=== PATIENT | male | born 1955 | race African-American/Black ===

== ENCOUNTER 2021-07-22 07:49 | Outpatient (CLI) | payer MEDICARE, SELFPAY ==
--- NOTE | 2021-08-03 22:43 | WPDSLEEPSTUD ---
Sleep Study Date of Study: 07/22/21 <Judith Quijano DO - Last Filed: 08/10/21 15:26> Ordering Provider: Judith Quijano DO <Judith Quijano DO - Last Filed: 08/10/21 15:26> Interpreting Physician: Judith Quijano DO <Judith Quijano DO - Last Filed: 08/10/21 15:26> Sleep Study Type: Split Polysomnogram <Judith Quijano DO - Last Filed: 08/10/21 15:26> Height: 1.75 m <Judith Quijano DO - Last Filed: 08/10/21 15:26> Weight: 108.862 kg <Judith Quijano DO - Last Filed: 08/10/21 15:26> Body Mass Index: 35.4 <Judith Quijano DO - Last Filed: 08/10/21 15:26> Neck Circumference (inches): 17 <Judith Quijano DO - Last Filed: 08/10/21 15:26> [place]: 3 <Judith Quijano DO - Last Filed: 08/10/21 15:26> Reason for Sleep Study Patient has known DANNY and needs new supplies. <Judith Quijano DO - Last Filed: 08/10/21 15:26> Sleep History The patient is a 66-year-old male with hypertension, hyperlipidemia, hypogonadism, benign prostatic hypertrophy and known DANNY that had a sleep study ordered by his PCP. the patient occasionally awakens from sleep short of breath. He denies awakening at night with heartburn, belching or cough. He constantly snores loud enough that others complaints. He denies having trouble sleeping when he has a cold. He denies waking up gasping for air throughout the night. He constantly has breathing problems at night observed by others. He constantly sweats excessively at night. He denies noticing heart palpitations or irregular heartbeats during the night. He occasionally falls asleep during the day but never while driving. He denies having trouble at school or work due to sleepiness. He denies sleep paralysis and cataplexy. He Hood bruno C[place]oy experiences vivid dream like scenes upon awakening or falling asleep. He denies having nightmares. He denies having thoughts racing through his mind. He denies feeling sad, depressed or anxious. He denies noticing parts of his body jerk. He denies kicking throughout the night. He occasionally has crawling aching feelings in his legs as well as leg pain during the night. He denies grinding his teeth during sleep and awakening with morning job pain. He is rarely bothered by pain during the day and rarely awakened by pain during the night. He denies waking up feeling stiff in the morning with sore and achy muscles. He goes to bed at 2:00 a.m. on both weekdays and weekends. he can fall asleep relatively quickly. He wakes up 6 times throughout the night to urinate. He can fall asleep relatively quickly. He wakes up at 6:00 a.m. on both weekdays and weekends. He typically gets 4 hours of sleep per night. He does not stay in bed after waking up in the morning. He currently lives with his . He denies consuming any caffeinated beverages within 2 hours of bedtime. He does not engage in physical exercise before bedtime. He will watch television before falling asleep. He does not take naps in the afternoon or the evening. He does smoke cigarettes. One pack will last him 1-2 weeks. He denies caffeine use throughout the day. He denies alcohol and recreational drug use. <Judith Quijano DO - Last Filed: 08/10/21 15:26> [facility] Past Medical History Medical History: Medical History BPH (benign prostatic hyperplasia) Diabetes mellitus Hypertension Hypogonadism in male DANNY (obstructive sleep apnea) <Judith Quijano DO - Last Filed: 08/10/21 15:26> Social History Social History: Social History Smoking status: Current every day smoker Tobacco type: cigarettes Alcohol intake: never Substance use: never Living arrangements: with family <Judith Quijano DO - Last Filed: 08/10/21 15:26> Sleep Procedure
[2021-08-10 15:07] VITALS: BMI 35.4
== END 2021-07-23 06:02 | disposition home or self-care (01) ==
LOC: ANHCSM 07:54
PROVIDERS: PCP Internal Medicine Infectious Disease; Visit Provider Family Medicine
DX: G47.33 Obstructive sleep apnea (adult) (pediatric) (principal)
CPT/HCPCS: 95811

== ENCOUNTER 2021-09-03 14:32 | Outpatient (CLI) | payer OTHER, SELFPAY ==
--- NOTE | 2021-09-03 15:53 | WPDPFTINT ---
PFT Procedure Performed PFT Procedure Performed Plethysmography (Lung Vol) Diffusing Cap (DLCO) Flow Vol Loop Spirometry w/o Bronchodil PFT Interpretation This is a pulmonary function test with spirometry, plethysmography and diffusing capacity. The test was performed and results interpreted in accordance with the 2019 and 2005 ATS/ERS Task Force guidelines respectively using the Global Lung Function Initiative-2012 reference equations. Patient demonstrated good effort and cooperation. Reproducibility criteria were met. The quality of the spirometry maneuver was Grade A. Findings: Spirometry: The contour the inspiratory and expiratory flow tracing are normal. The FVC is 2.88 L, 81% predicted. The FEV1 is 2.31 L, 84% predicted. The FEV1: FVC ratio was 80%. Plethysmography: The total lung capacity is 5.34 L, 89% predicted. The functional residual capacity is 3.99 L, 120% predicted. The residual volume is 2.46 L, 114% predicted. Diffusing capacity: The diffusing capacity unadjusted for hemoglobin is 19.1, 72% predicted. The diffusing capacity adjusted for alveolar volume is 5.71, 140% predicted. Impression: The spirometry is normal without evidence of an obstructive abnormality. The lung volumes are normal. The diffusing capacity unadjusted for hemoglobin is normal and is increased when adjusted for alveolar volume. There are no prior studies for comparison
== END 2021-09-03 14:33 | disposition home or self-care (01) ==
PROVIDERS: PCP Internal Medicine Infectious Disease; Visit Provider Internal Medicine Cardiovascular Disease
DX: R06.02 Shortness of breath (principal)
CPT/HCPCS: 94375; 94726; 94729

== ENCOUNTER 2021-09-24 00:44 | Day surgery (SDC) | payer OTHER, SELFPAY ==
[2021-09-23 16:26] VITALS: BMI 33.9
[2021-09-24] VITALS (9 sets, daily range): BP systolic 140–164; BP diastolic 77–103; PULSE 61–84; RESP 16–24; TEMP 36.6; O2SAT 98–100; BMI 33.1
[2021-09-24 07:44] LABS: Basophils Absolute Auto 0.1 K/mm3 (0.0-0.1); Basophils Percent Auto 0.7 % (0.2-1.2); Eosinophils Absolute Auto 0.1 K/mm3 (0-0.3); Eosinophils Percent Auto 1.7 % (0-4.4); Hematocrit 52.6 % (42.0-52.0); Hemoglobin 17.7 g/dL (14.0-18.0); Immature Granulocyte Absolute 0.04 K/mm3 (0.00-0.031); Immature Granulocyte Percent A 0.5 % (0-0.5); Immature Platelet Fraction Pct 12.8 % (0.9-11.2); Lymphocytes Absolute Auto 2.26 K/mm3 (0.9-3.2); Lymphocytes Percent Auto 30.1 % (18.3-44.2); Mean Corpuscular HGB Conc 33.7 g/dl (32-36); Mean Corpuscular Hemoglobin 32.2 pg (26-34); Mean Corpuscular Volume 95.8 fl (80-100); Monocytes Absolute Auto 1.1 K/mm3 (0.1-0.6); Neutrophils Absolute Auto 3.9 K/mm3 (1.3-6.7); Platelet Count Result 141 k/mm3 (150-375); Red Blood Count 5.49 M/mm3 (4.6-6.20); Red Cell Distribution Width 14.3 % (11.5-14.5); White Blood Count 7.5 K/mm3 (4.5-10.0)
[2021-09-24] MEDS: SODIUM CHLORIDE 0.9% IV 500 ML 100 ML IV CONT (07:46)
[2021-09-24 07:51] LABS: Anion Gap 4 mmol/L (8-16); Blood Urea Nitrogen 15 mg/dL (9-20); Calcium 8.6 mg/dL (8.4-10.2); Carbon Dioxide 30 mmol/L (22-30); Chloride 105 mmol/L (98-107); Estimated CRCL calculation 79 ml/min; Estimated Glomerular Filt Rate > 60; Glucose 102 mg/dL (65-110); Sodium 139 mmol/L (137-145)
[2021-09-24 07:54] LABS: INR 1.1; Prothrombin Time 13.6 Seconds (11.1-14.7)
[2021-09-24 08:01] LABS: Atypical Lymphocytes Present; Platelet Estimate Adequate (Adequate)
--- NOTE | 2021-09-24 09:02 | WPDMODSED ---
Moderate Sedation Note-Pt Data Patient Data Diagnosis: Exertional dyspnea Left ventricular dysfunction Abnormal nuclear stress test Untreated sleep apnea Polycythemia Present Complaint: This is a 66-year-old patient without previous history of known coronary disease evaluated as an outpatient because of dyspnea. He underwent a nuclear stress test which demonstrated evidence of a fixed inferior defect and left ventricular systolic dysfunction. An echocardiogram was interpreted as demonstrating normal left ventricular systolic function. ECG appears to show sinus rhythm with findings compatible with an anterior infarction. For further evaluation and clarification of all of this catheterization has been recommended. Procedure to be performed/Plan: Left heart catheterization Allergies Allergy/AdvReac Type Severity Reaction Status Date / Time No Known Allergies Allergy Verified 09/24/21 07:31 Home Medications Medication Instructions Recorded Confirmed Type amlodipine 2.5 mg PO DAILY 09/23/21 09/24/21 History finasteride 5 mg PO DAILY 09/23/21 09/24/21 History pravastatin 40 mg PO DAILY 09/23/21 09/23/21 History tamsulosin 0.4 mg PO DAILY 09/23/21 09/24/21 History testosterone enanthate [Xyosted] 100 mg SUBCUT WEEKLY 09/23/21 09/23/21 History Current Medications: Active Medications Sodium Chloride (Normal Saline Iv) 500 mls @ 100 mls/hr IV CONT .Q5H RACHEL Last Admin: 09/24/21 07:46 Dose: 100 mls/hr Documented by: Sedation/Anesthesia: No previous sedation/anesthesia problems (including family history). [facility] Past Medical History Medical History BPH (benign prostatic hyperplasia) Diabetes mellitus Hypertension Hypogonadism in male DANNY (obstructive sleep apnea) Social History Social History Years smoked: 23 Smoking status: Light tobacco smoker Tobacco type: cigars Smokeless tobacco user: chewing tobacco Second hand tobacco smoke exposure: No Alcohol intake: never Alcohol use details: drinks every 6 weeks or so Substance use: former Substance use type: former substance user and marijuana Other substance usage details: smokes cigars Living arrangements: with family Spiritual care concerns: No Mod Sed Physical Exam Physical Exam Pre Procedural Exam: Normal: Neck, Throat, Airway, Lungs, Heart Size, Heart Rate, Heart Rhythm, Neuro Exam and Extremities and Variation: Appearance (Overweight black male no distress) Hours since solid foods: 12 Hours since liquid intake: 12 Mallampati Classification: class II Internal Medicine - PN: Obj Da Vital Signs Vital Signs: Vital Signs - 24 hr 09/24/21 07:20 Temperature 36.6 C Pulse Rate 84 Respiratory Rate 22 H Blood Pressure 164/103 H Pulse Oximetry 99 Meds/Results Medications: Active Medications Generic Name Dose Route Start Last Admin Trade Name Freq PRN Reason Stop Dose Admin Sodium Chloride 500 mls @ 100 mls/hr 09/24/21 07:30 09/24/21 07:46 Normal Saline Iv IV CONT 100 mls/hr .Q5H RACHEL Administration Labs CBC & Chem 7: 09/24/21 07:23 09/24/21 07:23 Labs: Laboratory Results - last 24 hr 09/24/21 09/24/21 09/24/21 07:23 07:23 07:23 WBC 7.5 RBC 5.49 Hgb 17.7 Hct 52.6 H MCV 95.8 MCH 32.2 MCHC 33.7 RDW 14.3 Plt Count 141 L MPV 12.0 H Immature Gran % (Auto) 0.5 Neut % (Auto) 52.0 Lymph % (Auto) 30.1 Emery % (Auto) 15.0 H Eos % (Auto) 1.7 Baso % (Auto) 0.7 Lymph # (Auto) 2.26 Emery # (Auto) 1.1 H Eos # (Auto) 0.1 Baso # (Auto) 0.1 Abs Immat Gran (auto) 0.04 H Absolute Neuts (auto) 3.9 Absolute Nucleated RBC 0.0 Nucleated RBC % 0.0 Atypical Lymphocytes Present Platelet Estimate Adequate % Immature Plt Fraction 12.8 H PT 13.6 INR 1.1 Sodium 139 Potassium 4.0 Chlori
--- NOTE | 2021-09-24 09:05 | SUR.PREOP ---
Dr. Onofre at bedside talking with patient and regarding left heart cath procedure. Dr. Onofre informed H & P is older than 30 days and needs updated.
--- NOTE | 2021-09-24 09:10 | PM.IMHP ---
H&P: HPI History of Present Illness Date/Time: 09/24/21 09:10 Chief Complaint: Shortness of breath Narrative: This is a 66-year-old patient that was recently referred to our offices seen by my partner for evaluation of dyspnea. He says that he notices shortness of breath with certain activities around the house such as lifting and bending. He states he is able to walk distances up to 4 or 5 miles without having symptoms of shortness of breath. He does not have any chest pain symptoms. The patient has an abnormal electrocardiogram which shows anterior Q-waves. He had a workup including an echocardiogram that demonstrated normal left ventricular systolic function. A nuclear stress test however so showed evidence of moderately depressed LV systolic function and a previous inferior infarction. For clarification of all of this left heart catheterization has been scheduled for today. Review of Systems Constitutional: Constitutional: Reports no additional constitutional complaints Eyes: Eyes: Reports no additional eye complaints ENT: Reports system reviewed and no additional complaints, except as documented Cardiovascular: Cardiovascular: Reports as per HPI Respiratory: Respiratory: Reports as per HPI Gastrointestinal: Gastrointestinal: Reports no additional gastrointestinal complaints Musculoskeletal: Musculoskeletal: Reports no additional musculoskeletal complaints Integumentary/Breasts: Skin/Breast: Reports system reviewed and no additional complaints, except as docu [facility] Past Medical History Medical History BPH (benign prostatic hyperplasia) Diabetes mellitus Hypertension Hypogonadism in male DANNY (obstructive sleep apnea) Social History Social History Years smoked: 23 Smoking status: Light tobacco smoker Tobacco type: cigars Smokeless tobacco user: chewing tobacco Second hand tobacco smoke exposure: No Alcohol intake: never Alcohol use details: drinks every 6 weeks or so Substance use: former Substance use type: former substance user and marijuana Other substance usage details: smokes cigars Living arrangements: with family Spiritual care concerns: No Meds Home Medications and Allergies Home Medications Medication Instructions Recorded Confirmed Type amlodipine 2.5 mg PO DAILY 09/23/21 09/24/21 History finasteride 5 mg PO DAILY 09/23/21 09/24/21 History pravastatin 40 mg PO DAILY 09/23/21 09/23/21 History tamsulosin 0.4 mg PO DAILY 09/23/21 09/24/21 History testosterone enanthate [Xyosted] 100 mg SUBCUT WEEKLY 09/23/21 09/23/21 History Allergies Allergy/AdvReac Type Severity Reaction Status Date / Time No Known Allergies Allergy Verified 09/24/21 07:31 Vital Signs Vital Signs - 24 hr 09/24/21 07:20 Temperature 36.6 C Pulse Rate 84 Respiratory Rate 22 H Blood Pressure 164/103 H Pulse Oximetry 99 Exam Const: General: comfortable and no acute distress Other: Pleasant somewhat overweight black gentleman appearing his stated age no distress of any sort HENMT: Mouth: Yes moist mucous membranes Eyes: Sclera: sclerae normal Pupils: Equal, round and reactive pupils present Neck: Neck: supple and no JVD Resp: Effort & Inspection: normal respiratory effort Auscultation: clear to auscultation bilaterally Cardio: Rate: regular rate Rhythm: regular rhythm Other: PMI not displaced of normal activity no murmur no gallop GI: GI Palp: Yes Soft to palpation Auscultation: normal bowel sounds Skin: General skin exam: normal color Neuro: Cognition (Neuro): normal cognition Extrem: General: normal to inspection Other: Good distal pulses, no edema H&P: Results Labs Labs: Short CBC 09/24/21 Range/Units 07:23 WBC 7.5 (4.5-10.0) K/mm3 Hgb 17.7 (14.0-18.0) g/dL Hct 52.6 H (42.0-52.0) % Plt Count 141 L (150-375) k/mm3 BMP
--- NOTE | 2021-09-24 09:47 | P.PCNCC_ITS ---
Cardiac Cath Procedure Note Date of procedure:: 09/24/21 Performing physician:: Wes Onofre MD Indication:: Exertional dyspnea abnormal nuclear stress test Brief clinical history:: this is a 66-year-old patient with a history of hypertension, up until recently untreated sleep apnea and recently referred for shortness of breath. Nuclear stress testing demonstrates evidence of LV systolic dysfunction and suggests evidence of previous inferior infarction. Procedure Procedure performed:: Left ventriculogram coronary angiogram Angio-Seal to right femoral artery Sedation/Medication given:: fentanyl 50 mg Versed 2 mg case start time 9:27 a.m. case end time 9:42 a.m. Access site:: right femoral artery Estimated blood loss:: 25 cc Procedure note:: patient was brought to the cardiac catheterization lab in the postabsorptive state where the right femoral triangle was prepared and draped in the normal fashion. Anesthesia was provided with 1% lidocaine infiltrated locally. Using the modified technique femoral artery was punctured a 5 Niuean vascular sheath was placed. I then used a 5 Niuean angled pigtail catheter to document left-sided hemodynamics and to inject LV g in the 30 degree CYR projection. After this the pigtail catheter was withdrawn and a 5 Niuean FL4 catheter was used to engage and inject the left coronary artery in multiple projections. After this the right coronary artery was engaged and injected 5 Niuean JR4 catheter. The cineangiograms were reviewed and the case was then terminated. a femoral angiogram was performed through the sheath and after this a 6 Niuean Angio-Seal device was used to provide hemostasis with a good result. 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 Findings:: Hemodynamics: Central pressure is 64 over 86 left ventricle 164/5 end-diastolic pressure 36. No gradient on pullback across the aortic valve. Left ventricle: The LV is moderately enlarged there is global hypocontractility which is severe in the inferior segment. Global ejection f raction is 35-40%. The left main coronary artery is large in caliber widely patent the left anterior descending is large in caliber patent down to around the apex the LAD and its diagonal branches are free of significant disease there is minimal luminal plaquing irregularity in the proximal segment of the LAD. The circumflex is a large caliber vessel and is codominant to the posterior circulation the circumflex system its marginal and posterior branches are angiographically unremarkable. The right coronary artery is moderate in caliber and codominant terminating in an RPDA. Right coronary artery smooth and angiographically unremarkable. Conclusion:: 1. codominant coronary circulation with no evidence of significant coronary disease. Minimal plaquing was noted in the proximal LAD 2. left ventricular systolic dysfunction ejection fraction estimated to be 35- 40%. 3. Elevated LVEDP 4. Angio-Seal to right femoral artery Wes Onofre MD [facility]
== END 2021-09-24 13:25 | disposition home or self-care (01) ==
PROVIDERS: PCP Internal Medicine Infectious Disease; Visit Provider Specialist
PROC: 4A023N7 Measurement of Cardiac Sampling and Pressure, Left Heart, Percutaneous Approach (ICD-10-PCS; CPT 93452; principal; 2021-09-24 09:00)
DX: R94.39 Abnormal result of other cardiovascular function study (principal); R06.02 Shortness of breath; I10 Essential (primary) hypertension; G47.33 Obstructive sleep apnea (adult) (pediatric); E11.9 Type 2 diabetes mellitus without complications; N40.0 Benign prostatic hyperplasia without lower urinary tract symptoms; E29.1 Testicular hypofunction; F17.220 Nicotine dependence, chewing tobacco, uncomplicated; F17.290 Nicotine dependence, other tobacco product, uncomplicated
CPT/HCPCS: 36415; 80048; 85025; 85055; 85610; 93458; C1760; C1887; C1894; G0269; J1644; J2250; J3010; J7040

== ENCOUNTER 2025-02-12 01:55 | Day surgery (SDC) | payer OTHER, SELFPAY ==
[2025-02-11 09:18] VITALS: BMI 38.6
[2025-02-12] VITALS (8 sets, daily range): BP systolic 112–133; BP diastolic 58–72; PULSE 69–86; RESP 15–24; TEMP 36.2; O2SAT 98–100
--- OUTSIDE RECORDS SUMMARY | 2025-02-12 01:58 | XMS_ITS | Encounter Summary ---
Author Organization [facility] Healthcare Address [address] [place] [address] Care Team Providers Care Joint Special [employer] Name Role Phone Laila Ojeda NP Primary Care Provider [phone] Black Dougherty MD Unavailable [phone] Justin Sommers MD Unavailable [phone] Yazmin Smith NP Unavailable [phone] Encounter Details Date Type Department Care Team (Late st Contact Info) Description 07/17/2024 Orders Only [facility] Health Information Management [address] [place] [id number] Justin Pepe MD [address] [facility] [address] [facility], [address] [place] [address] Social History Tobacco Use Types Packs/Day Years Used Date Smoking Tobacco: Some Days Cigars Smokeless Tobacco: Never Alcohol Use Standard Drinks/Week Comments Yes 0 (1 standard drink = 0.6 oz pur e alcohol) AUDIT-C Answer Date Recorded Q1: How often do you have a drink containing alc ohol? Monthly or less 02/27/2022 Q2: How many drinks containi ng alcohol do you have on a typical day when you are drinking? 1 or 2 02/27/2022 Q3: How often do you have si x or more drinks on one occasion? Less than monthly 02/27/2022 PHQ-2 Answer Date Recorded PHQ-2 Total Score (If total score is 3 or more points, staff should administer the PHQ-9) 0 02/26/2024 Personal Safety Answer Date Recorded Have you ever been in or are you currently in a harmful physical or emotional relationship or is someone making you feel afraid or unsafe? 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 Gender Identity Not on file Sexual Orientation Not on file documented as of this encounter Plan of Treatment Not on file documented as of this encounter Procedures Procedure Name Priority Date/Time Associated Diagnosis Comments SCAN - RADIOLOGY/IMAGING 07/17/2024 documented in this encounter Results * SCAN - RADIOLOGY/IMAGING (07/17/2024) Anatomical Region Laterality Modality Other us Justin Pepe MD Final Res ult documented in this encounter Visit Diagnoses Not on filedocumented in this encounter Care Teams Joint Special Operations Relationship Specialty Start Date End Date Laila Ojeda NP [address] [facility] [place] [place] [address] PCP - General Internal Medicine 06/27/24 Black Dougherty MD [address] [place] [address] 06/27/24 08/01/24 Justin Sommers MD [address] [place] [address] Referring Physician General Surgery 01/22/18 Yazmin Smith NP [address] [place] [address] Nurse Practitioner Urology 01/01/20 documented as of this encounter
--- OUTSIDE RECORDS SUMMARY | 2025-02-12 01:58 | XMS_ITS | Encounter Summary ---
Author Organization [facility] Address [address] [place] [address] Phone Care Team Providers Care Associate Professor Of Geography Name Role Phone Black Dougherty MD Primary Care Provider [phone] Laila Ojeda NP Primary Care Provider [phone] Black Dougherty MD Unavailable [phone] Justin Sommers MD Unavailable [phone] Yazmin Smith NP Unavailable [phone] Diane Bucio MA Unavailable Encounter Details Date Type Department Care Team (Late st Contact Info) Description 07/22/2021 Orders Only [facility] [address] [place] [address] Scanning, Provider Social History Tobacco Use Types Packs/Day Years Used Date Smoking Tobacco: Every Day Cigarettes Cigars Smokeless Tobacco: Never Alcohol Use Standard Drinks/Week Comments Yes 0 (1 standard drink = 0.6 oz pur e alcohol) Sex and Gender Information Value Date Recorded Sex Assigned at Not on file 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 Gender Identity Not on file Sexual Orientation Not on file documented as of this encounter Plan of Treatment Not on file documented as of this encounter Procedures Procedure Name Priority Date/Time Associated Diagnosis Comments PULMONARY - RESULT SCAN 09/03/2021 SLEEP LAB/STUDY - RESULT 07/22/2021 documented in this encounter Results * PULMONARY - RESULT SCAN (09/03/2021) Anatomical Region Laterality Modality Other us Provider Scanning Final Result * SLEEP LAB/STUDY - RESULT (07/22/2021) us Provider Scanning Final Result documented in this encounter Visit Diagnoses Not on filedocumented in this encounter Care Teams Associate Professor Of Geography Relationship Specialty Start Date End Date Black Dougherty MD [address] [place] [address] PCP - General 09/08/11 06/26/24 Laila Ojeda NP [address] [facility] [place] [address] PCP - General Internal Medicine 06/27/24 Black Dougherty MD [address] [place] [address] 06/27/24 08/01/24 Justin Sommers MD [address] [facility] [place] [address] Referring Physician General Surgery 01/22/18 Yazmin Smith, ROLANDO [address] [place] [id number] Nurse Practitioner Urology 01/01/20 Diane Bucio MA [address] [place] [address] [address] [place] [address] ACO Care 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
--- OUTSIDE RECORDS SUMMARY | 2025-02-12 01:58 | XMS_ITS | Clinical Summary ---
Author Organization [facility] Address [address] [place] [address] Care Team Providers Care Legal Specialist Name Role Phone Laila Ojeda NP Primary Care Provider [phone] Ema Sommers MD Unavailable Yazmin Smith NP Unavailable [phone] Allergies No known active allergies Medications aspirin 81 mg enteric coated tabletIndications:C erebral Thromboembolism Prevention Take 1 tablet (81 mg total) by mouth daily for 21 days 21 tablet 03/02/20 22 Active cholecalciferol (VITAMIN D-3) 50,000 unit capsule Take 1 capsule (50,000 Units total) by mouth once a week Active tamsulosin (FLOMAX) 0.4 mg extended release capsule Take 1 capsule (0.4 mg total) by mouth daily 07/03/19 24 Active amLODIPine (NORVASC) 10 mg tablet TAKE 1 TABLET BY MOUTH EVERY DAY 90 tablet 2 12/11/19 24 Active atorvastatin (LIPITOR) 40 mg tablet TAKE 1 TABLET BY MOUTH EVERY DAY 90 tablet 1 03/11/20 24 Active carvediloL (COREG) 12.5 mg tabletIndications:N onischemic cardiomyopathy (HCC),Essential hypertension,Elevat ed left ventricular end-diastolic pressure (LVEDP) Take 1 tablet (12.5 mg total) by mouth 2 (two) times a day with meals 180 tablet 2 06/27/20 24 Active Additional Information Patient taking differently: 25 mgoral 2 times daily with meals (bkfst, dinner), Reported on 12/23/2024 losartan (COZAAR) 100 mg tabletIndications:E ssential hypertension Take 1 tablet (100 mg total) by mouth daily 90 tablet 2 06/27/20 24 Active solifenacin (VESIcare) 5 mg tablet Take 1 tablet (5 mg total) by mouth daily 12/07/19 25 Active sildenafiL, pulm.hypertension, (REVATIO) 20 mg tablet TAKE 1-5 TABS BY MOUTH DAILY DIRECTED. 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): CXR WAS NEG CT OF THE HEAD WAS NEG LABS WERE NL NO ORTHOSTSICS TODAY EKG DONE TODSAY SHOWING IRREGUALR / HR OF AROUND 80 / NO ACUTE ST/T WAVE CHANGES MAKE F/U DR [facility] Routine physical examination 02/26/2024 Assessment & Plan (02/26/2024 8:45 AM CDT): Immunizations were reviewed Left acute arterial ischemic stroke, MEDICAL GENETICS DIRECTOR (posterior cerebral artery) 03/08/2022 Multinodular goiter 03/08/2022 Uncontrolled hypertension 03/08/2022 Diastolic dysfunction without heart failure 12/2021 Arterial ischemic stroke, MC A (middle cerebral artery), left, acute 02/27/2022 Nonischemic cardiomyopathy 12/10/2021 Elevated left ventricular end-diastolic pressure (LVEDP) 12/10/2021 Morbid (severe) obesity due to excess calories 0 10/04/2021 Shortness of breath 08/17/2021 Essential hypertension 08/17/2021 ASKEW (dyspnea on exertion) 08/17/2021 Rectal bleeding 06/19/2019 Overview (06/19/2019): Added automatically from request for surgery [id number] Blood in stool 06/19/2019 Overview (06/19/2019): Added automatically from request for surgery [id number] Vertigo 08/10/2017 Surgical follow-up care 06/12/2017 Obesity with body mass index 30 or greater 06/08 Reserve-vesical fistula 05/19/2017 Abnormal EKG 05/19/2017 Routine physical examination 02/03/2017 Assessment & Plan (02/26/2024 12:50 PM CDT): IMMUNIZATIONS WERE REVIEWED DILATED EYE EXAM IS NL ORAL EXAM/ DENTAL EXAM IS NL COLONSCOPY IS UPTODATE BPH WITH SYMPTOMS OF OAB : ON FLOMAX AND OXYBUTYNIN NICM : CHRONIC AND STABLE F/U DR PEPE DANNY ON CPAP MACHINE USAING IT NIGHTLY LOW TESOTEROTNE : F/U UROLOGY CHRONIC AND STABLE ESSENTIAL HYPERTESNIN GOAL BP IS 130/80 OR UNDER MIXED HYPERLIPIMDEIA GOAL LDL IS UNDER70 H/o stroke with no residual sequelae : on plavix 75 mg po qday Skin assesssment todsay with no suspicious lesions Tobacco abuse cessation reviewed Falls risks and prevention [facility] today Knee pain 11/18/2015 Overview (10/06/2016): Knee pain Mixed hyperlipidemia 11/16/2013 Overview (10/06/2016): Hyperlipidemia Benign prostatic hyperplasia without lower urinary tract symptoms 11/16/2013 Overview (10/06/2016): BPH (benign prostatic hypertrophy) DANNY (obstructive sleep apnea) 11/16/2013 Overview (10/06/2016): Obstructive sleep apnea Tobacco dependence syndrome 11/16/2013 Overview (10/07/2016): Tobacco abuse Resolved Problems Problem Noted Date Diagnosed Date Resolved Date Type 2 diabetes mellitus wit hout complication, without long-term current use of insulin 05/19/2017 02/16/2023 Encounters Date Type Department Care Team Description 02/03/2025 10:00 AM CDT Procedure visit [facility] [address] [place] [address] [address] [place] [phone] Hypertension, essential 02/03/2025 Telephone [facility] [address] [place] [address] [address] [place] [phone] Caterina Sanderson NP 02/03/2025 Results Follow-Up [facility] [address] [place] [address] [place] [phone] Caterina Sanderson NP ECG 12 lead 12/24/2024 Orders Only [facility] [place] Health Information Management [address] [place], [place] [id number] Scanning, Provider 12/23/2024 1:30 PM CDT Office Visit [facility] [address] [place] [address] [place] [phone] Caterina Sanderson NP Atrial flutter, unspecified type (HCC) (Primary Dx); History of stroke; Encounter for anticoagulation discussion and counseling 12/11/2024 Telephone [facility] [address] [place] [address] [place] [phone] Ema Pepe MD from Last 3 Months Immunizations Immunization Administration Dates Next Due DTP 10/20/2008,10/20/2002 Influenza, Quad, Adjuvantate d, Intramuscular 04/18/2021,03/04/2020 Influenza, Quadrivalent, Hig h Dose, Preservative Free, Intrr 03/07/2022 Influenza, Quadrivalent, Spl it, Intramuscular 03/29/2016 Influenza, Split 03/27/2013 Influenza, Trivalent, High D ose, Split, Preservative Free, Intramuscular 05/21/2019 Influenza, Trivalent, IM (MDV) 07/01/2015,2013 Influenza, Unspecified 04/02/2023(Deferr ed: Patient decision),05/30/2017 Moderna SARS-CoV-2 Monovalen t Vaccination (12+ YRS) 04/18/2021 Pfizer Sars-Cov-2 Bivalent V accination (12+ YRS) 05/04/2022 ZOSTER Recombinant 10/18/2022,08/11/2022 Surgical History Surgery Date Site/Laterality Comments COLONOSCOPY 06/18/2010 Medical History Medical History Date Comments Diabetes mellitus (HCC) Low testosterone Hypertension Shortness of breath Family History Medical History Relation Name Comments Diabetes Brother Allergic reaction Father Diabetes Mother Stroke Mother Other Other Family history of diabetes and hypertension.; Diabetes type II Sister 1 Diabetes Sister 2 Diabetes Sister 3 Relation Name Status Comments Brother Alive Father Mother Other Sister 1 Sister 2 Sister 3 Social History Tobacco Use Types Packs/Day Years Used Date Smoking Tobacco: Some Days Cigars Smokeless Tobacco: Never Tobacco Cessation:Ready to Q uit: Not Asked; Counseling Given: Not Answered Alcohol Use Standard Drinks/Week Comments Yes 0 [...] on file 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 Gender Identity Not on file Sexual Orientation Not on file Obstetrics History Last Filed Vital Signs Vital Sign Reading Time Taken Comments Blood Pressure 110/62 02/03/2025 9:50 AM CDT Pulse 70 02/03/2025 9:50 AM CDT Temperature 36.6 C (97.8 F) 06/19/2024 1:39 PM NATURAL RESOURCES ENGINEER Respiratory Rate 20 06/19/2024 1:39 PM NATURAL RESOURCES ENGINEER Oxygen Saturation 99% 02/03/2025 9:50 AM CDT Inhaled Oxygen Concentration - - Weight 111.6 kg (246 lb) 12/23/2024 1:31 PM CDT Height 175.3 cm (5' 9) 12/23/2024 1:31 PM CDT Body Mass Index 36.33 12/23/2024 1:31 PM CDT Plan of Treatment Health Maintenance Due Date Last Done Comments Hepatitis B Screening 1972 Pneumococcal vaccine 65+ (1 of 2 - PCV) 1973 DTaP/Tdap/Td Vaccine (3 - Tdap) 10/20/2018 9, 10/20/2002 Abdominal Aortic Aneurysm (A AA) Screen 2019 03/09/2017 Covid-19 Vaccine (5 - 2023-2 5 season) 2024 05/04/2022, 04/18/2021, 09/17/2020, Additional history exists Depression Screening 02/25/2025 02/26/2024, 08/25/2023, 08/25/2023, Additional history exists Fall Risk Assessment 02/25/2025 02/26/2024, 02/16/2023, 03/01/2022, Additional history exists Well Visit 65+ 02/25/2025 02/26/2024, 01/31, 02/07/2022, Additional history exists Influenza Vaccine (#1) 2025 , 03/07/2022, 04/18/2021, Additional history exists Prostate Cancer Screening-PSA 03/29/2025, 07/13/2021, 01/06/2020, Additional history exists Colon Cancer Screening-Colonoscopy 07/18/2029 07/18/2019, 03/30/2017, 06/18/2010 Hepatitis C Screening Completed 02/03/2017 Colon Cancer Screening-CT Colonography Discontinued 07/18/2019, 03/30/2017, 06/18/2010 Colon Cancer Screening-DNA Stool Discontinued 07/18/2019, 03/30/2017, 06/18/2010 Colon Cancer Screening-FIT Discontinued 07/18, 03/30/2017, 06/18/2010 Colon Cancer Screening-Sigmoidoscopy Discontinued 07/18/2019, 03/30/2017, 06/18/2010 Zoster Vaccine Completed 10/18/2022, 08/11/2022 Procedures Procedure Name Priority Date/Time Associated Diagnosis Comments ECG 12-LEAD Routine 02/03/2025 9:52 AM CDT Hypertension, essential CARDIOLOGY DOCUMENT SCAN 12/24/2024 9:28 PM CDT PSA SCREEN Routine 03/29/2023 9:55 AM CDT Prostate cancer screening COLONOSCOPY 07/18/2019 9:59 AM [address] CT ABDOMEN PELVIS W CONTRAST Routine 03/09/2017 6:54 PM CDT HEPATITIS C ANTIBODY Routine 02/03/2017 9:17 AM CDT Routine physical examination from Last 3 Months or Most Recently Relevant to Health Maintenance Results * ECG 12 lead (02/03/2025 9:52 AM CDT) us Caterina Sanderson NP ECG ORDERABLES Final Res ult * Cardiology Document Scan (12/24/2024 9:28 PM CDT) Anatomical Region Laterality Modality Other us Provider Scanning [facility] CARDIAC SERVICES PROCEDURES Final Result * PSA screen (03/29/2023 9:55 AM CDT) PSA 1.14 < OR = 4.00 ng/mL [facility] Comment: The total PSA value from this assay system is standardized against the WHO standard. The test result will be approximately 20% lower when compared to the equimolar-standardized total PSA (Bessy Keyana). Comparison of serial PSA results should be interpreted with this fact in mind. This test was performed using the Siemens chemiluminescent method. Values obtained from different assay methods cannot be used interchangeably. PSA levels, regardless of value, should not be interpreted as absolute evidence of the presence or absence of disease. Blood 03/29/2023 9:55 AM CDT 03/30/2023 3:40 AM CDT us Black Dougherty MD LAB BLOOD ORDERABLES Final Result [facility] [id number] [id number] * COLONOSCOPY (07/18/2019 9:59 AM NATURAL RESOURCES ENGINEER) Anatomical Region Laterality Modality Other Narrative Procedure Note Percy Rowe MD - 07/18/2019 9:59 AM CST [facility] Patient Name: Kelby Guaman Procedure Date: 07/18/2019 9:59 AM Date of : 1955 Admit Type: Outpatient Age: 64 Gender: Male Attending MD: Percy Rowe M.D. Room: [facility] ENDOSCOPY ROOM 2 Note Status: Finalized Patient Profile: Refer to note in patient chart for documentation of history and physical. Procedure: Colonoscopy Indications: Screening for colorectal malignant neoplasm, Last colonoscopy: May 2010. History of sigmoid resection for colovesical fistula. Referring MD: Black Dougherty M.D. Providers: Percy Rowe M.D. Impression: - Hemorrhoids found on perianal exam. - Patent end-to-end colo-colonic anastomosis, characterized by healthy appearing mucosa. - Diverticulosis in the sigmoid colon and at the hepatic flexure. - The examination was otherwise normal. - No specimens collected. Recommendation: - Discharge patient to home. - Resume previous diet. - Continue present medications. - Repeat colonoscopy in 10 years for screeningpurposes. - Return to primary care physician as previously scheduled. Medicines: Propofol per Anesthesia Complications: No immediate complications. Estimated Blood Loss: Estimated blood loss: none. Procedure: Pre-Anesthesia Assessment: - This assessment was completed [Time of Assessment] prior to the administration of sedation. The benefits, risks and alternatives of theprocedure and sedation were discussed and informed consent was obtained. All questions were answered. Please referto the signed informed consent document in the medical record. The bowel preparation used was Miralax. The bowel preparation used was bisacodyl tablets. Bowel prep was administered using a single dose. The scope was passed under direct vision. The Colonoscope [id number] was introduced through the anusand advanced to the the cecum, identified by appendiceal orifice and ileocecal valve. The colonoscopy was performed without difficulty. The patient toleratedthe procedure well. The quality of the bowel preparation was excellent. Findings: Hemorrhoids were found on perianal exam. There was evidence of a prior end-to-end colo-colonic anastomosis inthe sigmoid colon. This was patent and was characterized by healthy appearing mucosa. Multiple small and large-mouthed diverticula were found in thesigmoid colon and hepatic flexure. The exam was otherwise without abnormality. Electronically signed by Percy Rowe M.D. Percy Rowe M.D. 07/18/2019 10:43:42 AM Number of Addenda: 0 Note Initiated On: 07/18/2019 9:59 AM Procedure Code(s): --- Professional --- G0121, Colorectal cancer screening; colonoscopy on individual not meeting criteria for high risk Diagnosis Code(s): --- Professional --- K57.30, Diverticulosis of large intestine without perforation orabscess without bleeding Z98.0, Intestinal bypass and anastomosis status K64.9, Unspecified hemorrhoids Z12.11, Encounter for screening for malignant neoplasm of colon CPT copyright 2017 [employer]. All rights reserved. The codes documented in this report are preliminary and upon boring machine feeder reviewmay be revised to meet current compliance requirements. Recognized by the [employer] for promoting quality in endoscopy Percy Rowe MD ENDOSCOPY PROCEDURES Final Re sult * CT Abdomen Pelvis W Contrast (03/09/2017 6:54 PM CDT) Anatomical Region Laterality Modality Body N/A Computed Tomogra phy 03/09/2017 6:54 PM CDT Narrative 03/09/2017 6:54 PM CDT PRABHU CARBONE M.D. FINAL REPORT ACC# Date Time Exam [id number] Mar 09, 2017 13:54:[id number] Abd and Pelvis with cont EXAMINATION: Computed tomography examination the abdomen pelvis with contrast HISTORY: Colovesical fistula. TECHNIQUE: Following the administration of 120 cc Optiray-350 images were obtained through the abdomen and pelvis using standard protocol. FINDINGS: There are no comparison computed tomography examinations. The liver, spleen, gallbladder, pancreas appear normal. There is an indeterminant 1.8 x 1.3 cm left adrenal nodule. The right adrenal gland appears normal. Simple cysts noted with in both kidneys. The bowel gas pattern is normal. Colonic diverticulosis present, most marked within the sigmoid colon. The sigmoid colon which contains numerous diverticula touches the dome of the bladder without intervening fat plane. There is a tiny air bubble is present with in the urinary bladder. The prostate appears normal. The lung bases are clear. Images obtained with bone window settings demonstrate multilevel degenerative changes within the spine. No suspicious osseous abnormality identified. IMPRESSION: 1. Extensive colonic diverticulosis most pronounced of the sigmoid colon where a portion of sigmoid colon touches the urinary bladder which contains an air bubble. Colovesical fistula cannot be excluded. 2. Indeterminate left adrenal nodule. Consider further evaluation with unenhanced computed tomography examination the abdomen. Requested By: EMA SOMMERS M.D. Dictated By: PRABHU CARBONE M.D. on Mar 09 2017 2:14P This document has been electronically signed by: PRABHU CARBONE M.D. on Mar 09 2017 2:14P [id number] Procedure Note Miscellaneous, Not In File / Provider, MD Jody - 03/09/2017 PRABHU CARBONE M.D. FINAL REPORT ACC# Date Time Exam [id number] Mar 09, 2017 13:54:[id number] Abd and Pelvis with cont EXAMINATION: Computed tomography examination the abdomen pelvis with contrast HISTORY: Colovesical fistula. TECHNIQUE: Following the administration of 120 cc Optiray-350 images were obtained through the abdomen and pelvis using standard protocol. FINDINGS: There are no comparison computed tomography examinations. The liver, spleen, gallbladder, pancreas appear normal. There is an indeterminant 1.8 x 1.3 cm left adrenal nodule. The right adrenal gland appears normal. Simple cysts noted with in both kidneys. The bowel gas pattern is normal. Colonic diverticulosis present, most marked within the sigmoid colon. The sigmoid colon which contains numerous diverticula touches the dome of the bladder without intervening fat plane. There is a tiny air bubble is present with in the urinary bladder. The prostate appears normal. The lung bases are clear. Images obtained with bone window settings demonstrate multilevel degenerative changes within the spine. No suspicious osseous abnormality identified. IMPRESSION: 1. Extensive colonic diverticulosis most pronounced of the sigmoid colon where a portion of sigmoid colon touches the urinary bladder which contains an air bubble. Colovesical fistula cannot be excluded. 2. Indeterminate left adrenal nodule. Consider further evaluation with unenhanced computed tomography examination the abdomen. Requested By: EMA SOMMERS M.D. Dictated By: PRABHU CARBONE M.D. on Mar 09 2017 2:14P This document has been electronically signed by: PRABHU CARBONE M.D. on Mar 09 2017 2:14P [id number] us Not In File Miscellaneous IMG CT PROCEDURES Emely l Result * Hepatitis C antibody (02/03/2017 9:17 AM CDT) Hep C Ab NON-REACTI VE NON-REACTI VE [facility] SIGNAL TO CUT-OFF 0.03 <1.00 [facility] [place] Blood specimen (specimen) 02/03/2017 9:17 AM CDT 02/03/2017 9:20 AM CDT Narrative [facility] - 02/05/2017 9:40 AM CDT FASTING:YES Resulting Agency Comment Performing Organization Information: Site ID: [facility] Name: [facility] Address: [address] [id number] Director: Prabhu Carrero D.O., MPH us Black Dougherty MD LAB MICROBIOLOGY - GENERAL ORDERABLES Final Result [facility] [place] from Last 3 Months or Most Recently Relevant to Health Maintenance Insurance [employer] CHOICE PPO [facility] CHOICE PPO Advance Directives For more information, please contact: [phone] * Full Code (Latest Code Status on File) Date Activated Date Inactivated Comments 02/27/2022 6:48 PM 03/01/2022 8:14 PM * Full Code Date Activated Date Inactivated Comments 07/18/2019 9:25 AM 07/18/2019 3:41 PM * Full Code Date Activated Date Inactivated Comments 07/18/2019 9:24 AM 07/18/2019 9:25 AM Care Teams Legal Specialist Relationship Specialty Start Date End Date Laila Ojeda NP [address] [place] [address] PCP - General Internal Medicine 06/27/24 Ema Sommers MD [address] [place] [address] Referring Physician General Surgery 01/22/18 Yazmin Smith NP [address] [place] [address] Nurse Practitioner Urology 01/01/20
--- OUTSIDE RECORDS SUMMARY | 2025-02-12 01:58 | XMS_ITS | Encounter Summary ---
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 Gender Identity Not on file Sexual Orientation Not on file documented as of this encounter Plan of Treatment Not on file documented as of this encounter Procedures Procedure Name Priority Date/Time Associated Diagnosis Comments CARDIOLOGY DOCUMENT SCAN 025 9:28 PM CDT documented in this encounter Results * Cardiology Document Scan (12/24/2024 9:28 PM CDT) Anatomical Region Laterality Modality Other us Provider Scanning [facility] PROCEDURES Final Result documented in this encounter Visit Diagnoses Not on filedocumented in this encounter Care Teams Oxygen Therapist Relationship Specialty Start Date End Date Laila Ojeda NP [address] [place] [address] PCP - General Internal Medicine 06/27/24 Justin Sommers MD [address] [place] [address] Referring Physician General Surgery 01/22/18 Yazmin Smith NP [address] [facility] [address] [place] [address] Nurse Practitioner Urology 01/01/20 documented as of this encounter
--- OUTSIDE RECORDS SUMMARY | 2025-02-12 01:58 | XMS_ITS | Encounter Summary ---
Author Organization [facility] Address [address] [place] [address] Care Team Providers Care Social Services Director Name Role Phone Laila Ojeda NP Primary Care Provider [phone] Justin Sommers MD Unavailable [phone] Yazmin Smith NP Unavailable [phone] Encounter Details Date Type Department Care Team (Late st Contact Info) Description 02/03/2025 Results Follow-Up [facility] [address] [address] [address] [place] [address] Caterina Sanderson NP [address] [place] [address] ECG 12 lead Social History Tobacco Use Types Packs/Day Years [...] on file 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 Gender Identity Not on file Sexual Orientation Not on file documented as of this encounter Plan of Treatment Not on file documented as of this encounter Visit Diagnoses Not on filedocumented in this encounter Care Teams Social Services Director Relationship Specialty Start Date End Date Laila Ojeda NP [address] [facility] [place] [address] PCP - General Internal Medicine 06/27/24 Justin Sommers MD [address] [facility] [place] [address] Referring Physician General Surgery 01/22/18 Yazmin Smith NP [address] [place] [address] Nurse Practitioner Urology 01/01/20 documented as of this encounter
--- NOTE | 2025-02-12 08:00 | ECG_ITS ---
Test Date: 2025-02-12 09:34:41 Measurements Intervals [place] Rate: 72 P: 53 DE: 214 QRS: -3 QRSD: 104 T: 50 QT: 405 QTc: 443 Interpretive Statements SINUS RHYTHM WITH FIRST DEGREE AV BLOCK BORDERLINE ECG Compared to ECG 02/12/2025 08:14:37 Atrial flutter no longer present Electronically Signed On 02-12-2025 10:19:27 CDT by Evan Sargent D.O.
--- NOTE | 2025-02-12 08:48 | P.SEDATION_ITS ---
Moderate Sedation Note-Pt Data Patient Data Diagnosis: Atrial fibrillation Present Complaint: Atrial fibrillation Procedure to be performed/Plan: Electrical cardioversion Moderate sedation Allergies Allergy/AdvReac Type Severity Reaction Status Date / Time No Known Allergies Allergy Verified 02/11/25 09:33 Home Medications ?Medication ?Instructions ?Recorded ?Confirmed ?Type amlodipine 2.5 mg tablet 2.5 mg PO DAILY 09/23/21 02/11/25 History finasteride 5 mg tablet 5 mg PO DAILY 09/23/21 02/11/25 History pravastatin 40 mg tablet 40 mg PO DAILY 09/23/21 02/11/25 History tamsulosin 0.4 mg capsule 0.4 mg PO DAILY 09/23/21 02/11/25 History testosterone enanthate 100 mg/0.5 100 mg subcut WEEKLY 09/23/21 02/11/25 History mL subcutaneous auto-injector (Xyosted) apixaban 5 mg tablet (Eliquis) 5 mg PO Q12H 02/11/25 02/11/25 History Current Medications: Active Medications Sodium Chloride (Normal Saline Iv) 1,000 mls @ 30 mls/hr IV CONT .Q24H RACHEL Sedation/Anesthesia: No previous sedation/anesthesia problems (including family history). [facility] Past Medical History Medical History BPH (benign prostatic hyperplasia) Diabetes mellitus Hypertension Hypogonadism in male DANNY (obstructive sleep apnea) Social History Social History Years smoked: 23 Smoking status: Smoker, status unknown Tobacco type: cigars Smokeless tobacco user: chewing tobacco Second hand tobacco smoke exposure: No Alcohol intake: never Alcohol use details: drinks every 6 weeks or so Substance use: former Substance use type: former substance user and marijuana Other substance usage details: smokes cigars Living arrangements: with family Spiritual care concerns: No Mod Sed Physical Exam Physical Exam Pre Procedural Exam: Normal: Appearance, Eyes, Ears, Nose, Neck, Throat, Airway, Lungs, Heart Size, Heart Rate, Neuro Exam, Extremities and Skin and Variation: Heart Rhythm (Irregular irregular) Hours since solid foods: 12 Hours since liquid intake: 12 Mallampati Classification: class II Internal Medicine - PN: Obj Da Vital Signs Vital Signs: Vital Signs - 24 hr 02/12/25 08:00 Temperature 36.2 C L Pulse Rate 86 Respiratory Rate 24 H Blood Pressure 133/72 Pulse Oximetry 100 Oxygen Delivery Room Air Intake/Output Intake/Output: Intake & Output 02/09/25 02/10/25 02/11/25 02/12/25 23:59 23:59 23:59 23:59 Intake Total 0 Balance 0 Meds/Results Medications: Active Medications Generic Name Dose Route Start Last Admin Trade Name Freq PRN Reason Stop Dose Admin Sodium Chloride 1,000 mls @ 30 mls/hr 02/12/25 08:00 Normal Saline Iv IV CONT .Q24H RACHEL Labs 02/12/25 08:19 ASA Classification/Sedation ASA Classification/Sedation ASA Class: II Emergent: No Risks: Risks, benefits and alternatives explained and patient/family accepted plan for sedation. Patient re-evaluated immediately prior to sedation.
--- NOTE | 2025-02-12 08:50 | PM.IMHP ---
H&P: HPI History of Present Illness Date/Time: 02/12/25 08:50 Chief Complaint: Atrial fibrillation Narrative: 69-year-old with atrial fibrillation. Review of Systems Review of Systems: All systems reviewed & are unremarkable except as noted in HPI and below Constitutional: Constitutional: Denies body ache(s) Eyes: Eyes: Denies blurry vision Cardiovascular: Cardiovascular: Denies chest pain Respiratory: Respiratory: Denies hemoptysis Gastrointestinal: Gastrointestinal: Denies abdominal pain Neurologic: Denies Abnormal speech present Psychiatric: Psychiatric: Denies behavioral changes [facility] Past Medical History Medical History BPH (benign prostatic hyperplasia) Diabetes mellitus Hypertension Hypogonadism in male DANNY (obstructive sleep apnea) Social History Social History Years smoked: 23 Smoking status: Smoker, status unknown Tobacco type: cigars Smokeless tobacco user: chewing tobacco Second hand tobacco smoke exposure: No Alcohol intake: never Alcohol use details: drinks every 6 weeks or so Substance use: former Substance use type: former substance user and marijuana Other substance usage details: smokes cigars Living arrangements: with family Spiritual care concerns: No Meds Home Medications and Allergies Home Medications ?Medication ?Instructions ?Recorded ?Confirmed ?Type amlodipine 2.5 mg tablet 2.5 mg PO DAILY 09/23/21 02/11/25 History finasteride 5 mg tablet 5 mg PO DAILY 09/23/21 02/11/25 History pravastatin 40 mg tablet 40 mg PO DAILY 09/23/21 02/11/25 History tamsulosin 0.4 mg capsule 0.4 mg PO DAILY 09/23/21 02/11/25 History testosterone enanthate 100 mg/0.5 100 mg subcut WEEKLY 09/23/21 02/11/25 History mL subcutaneous auto-injector (Xyosted) apixaban 5 mg tablet (Eliquis) 5 mg PO Q12H 02/11/25 02/11/25 History Allergies Allergy/AdvReac Type Severity Reaction Status Date / Time No Known Allergies Allergy Verified 02/11/25 09:33 Vital Signs Vital Signs - 24 hr 02/12/25 08:00 Temperature 36.2 C L Pulse Rate 86 Respiratory Rate 24 H Blood Pressure 133/72 Pulse Oximetry 100 Oxygen Delivery Room Air Exam Narrative: Alert oriented Const: General: comfortable and no acute distress HENMT: Face/Nose/Sinus: Normal nares present Eyes: General: appearance normal, both eyes and all related structures Sclera: sclerae normal Neck: Neck: supple and no JVD Chest: Other: No reproducible chest wall pain to palpation Resp: Effort & Inspection: normal respiratory effort Auscultation: clear to auscultation bilaterally Cardio: Rate: regular rate Rhythm: abnormal rhythm irregularly irregular Heart sounds: no murmurs GI: GI Palp: Yes Soft to palpation Auscultation: normal bowel sounds Skin: General skin exam: normal color Neuro: Speech: normal speech Extrem: General: normal to inspection Psych: Mental Status: mental status grossly normal Affect: normal affect Assessment and Plan Assessment and plan (1) Atrial fibrillation and flutter: Code(s): I48.91 - Unspecified atrial fibrillation; I48.92 - Unspecified atrial flutter Status: Acute Plan 1. Electrical cardioversion 2. Moderate sedation
[2025-02-12 08:53] LABS: Anion Gap 6 mmol/L (4-12); Blood Urea Nitrogen 15 mg/dL (9-20); Calcium 9.3 mg/dL (8.4-10.2); Carbon Dioxide 27 mmol/L (22-30); Chloride 107 mmol/L (98-107); Estimated CRCL calculation 83 ml/min; Estimated Glomerular Filt Rate > 60; Glucose 115 mg/dL (65-110); Magnesium 1.9 mg/dL (1.6-2.3); Potassium 3.9 mmol/L (3.4-5.0); Sodium 140 mmol/L (137-145)
--- NOTE | 2025-02-12 09:34 | P.PCNCVR_ITS ---
Cardioversion Cardioversion Date of procedure: 02/12/25 Procedure: 1. Moderate sedation 2. Elective cardioversion Pre-op diagnosis: Atrial fibrillation/flutter Post-op diagnosis: Same Indications: Atrial fibrillation/flutter Description of procedure: After discussing risks, benefits alternatives of the procedure patient agreeable via verbal and written informed consent. Risks discussed included skin irritation or burn, shocking into more problematic heart rhythm, adverse reaction anesthesia, , stroke. After establishing continuous admission liaison, pulse oxygenation and serial blood pressure assessments, time-out was taken procedure was started Procedure start time 9:25 a.m. Procedure start time 9:31 a.m. Complications: None Blood loss: None A total 2 mg of Versed and 50 mcg of fentanyl were given for moderate sedation. Medications were administered patient was monitored by Jeannie Maloney Sedation: As detailed above. 2 mg of Versed and 50 mcg of fentanyl Findings: Successful restorationism of sinus rhythm using 150 joules of biphasic synchronized energy Conclusion: 1. Moderate sedation 2. Successful restorationism of sinus rhythm from atrial fibrillation/flutter using 150 joules of synchronized biphasic energy.
--- NOTE | 2025-02-12 09:50 | ECG_ITS ---
Test Date: 2025-02-12 08:14:37 Measurements Intervals [place] Rate: 81 P: 0 TN: 0 QRS: -7 QRSD: 104 T: 70 QT: 367 QTc: 428 Interpretive Statements ATRIAL FLUTTER/TACHYCARDIA WITHNORMAL VENTRICULAR RESPONSE BASELINE ARTIFACT- I, III, AVL ABNORMAL ECG No previous ECG available for comparison Electronically Signed On 02-12-2025 08:30:22 CDT by Evan Sargent D.O.
[2025-02-12] MEDS: MIDAZOLAM HCL (*CRX) 2 MG/2 ML VIAL IV PUSH (14:34)
[2025-02-12] MEDS: fentaNYL CITRATE INJ (*CRX) 100 MCG/2 ML VIAL 50 MCG IV PUSH (14:34)
== END 2025-02-12 10:41 | disposition home or self-care (01) ==
PROVIDERS: Visit Provider Internal Medicine Cardiovascular Disease
PROC: 5A2204Z Restoration of Cardiac Rhythm, Single (ICD-10-PCS; principal; 2025-02-12 09:30)
DX: I48.91 Unspecified atrial fibrillation (principal); I48.92 Unspecified atrial flutter; R94.31 Abnormal electrocardiogram [ECG] [EKG]; N40.0 Benign prostatic hyperplasia without lower urinary tract symptoms; E11.9 Type 2 diabetes mellitus without complications; I10 Essential (primary) hypertension; E29.1 Testicular hypofunction; G47.33 Obstructive sleep apnea (adult) (pediatric); F17.220 Nicotine dependence, chewing tobacco, uncomplicated; F12.90 Cannabis use, unspecified, uncomplicated; Z79.01 Long term (current) use of anticoagulants
CPT/HCPCS: 36415; 80048; 83735; 92960; J2250; J3010; J7030